=== PATIENT | female | born 1965 | race Caucasian/White ===

== ENCOUNTER 2021-01-14 19:21 | Emergency (ER) | payer OTHER ==
[~2021-01-14] VITALS: Ht 170.2 cm; Wt 72.6 kg
[2021-01-14] MEDS ORDERED: AMBIEN5 MG (19:46)
[2021-01-14] MEDS ORDERED: ENDOMETRIN100 MG (19:46)
[2021-01-14] MEDS ORDERED: FLAGYL500MG PO (23:19)
[2021-01-14] MEDS ORDERED: PROTONIX20 MG PO (23:19)
[2021-01-14] MEDS ORDERED: CIPRO500 MG PO (23:19)
[2021-01-14] MEDS ORDERED: DICY20TA PO (23:19)
== END 2021-01-14 23:41 | disposition home or self-care (01) ==
LOC: ER 19:21
DX: K57.32 Diverticulitis of large intestine without perforation or abscess without bleeding (principal); R10.32 Left lower quadrant pain

== ENCOUNTER 2023-08-28 14:10 | Inpatient (IN) | payer OTHER ==
[~2023-08-28] VITALS: Ht 170.2 cm; Wt 72.6 kg
[~2023-08-28 14:10] MED LIST: AMBIEN5 MG; CIPRO500 MG PO; DICY20TA PO; ENDOMETRIN100 MG; FLAGYL500MG PO; PROTONIX20 MG PO
[2023-08-28 17:21] LABS: HEMATOCRIT 41.4 % (36.0-45.00); HEMOGLOBIN 13.3 g/dL (12.0-15.00); MEAN CELL VOLUME 86.4 fL (80.00-100.00); MEAN CORPUSCULAR HEMOGLOBIN 27.7 pg (27.00-32.0); MEAN CORPUSCULAR HGB CONC 32.1 g/dl (32.0-36.0); PLATELET COUNT 319 K/uL (150-450); RED BLOOD COUNT 4.79 M/uL (4.00-6.00); RED CELL DISTRIBUTION WIDTH 13.4 % (11.5-14.5)
[2023-08-28 17:41] LABS: INR 1.02; PARTIAL THROMBOPLASTIN TIME 26.8 SECONDS (22.0-34.0); PROTHROMBIN TIME 10.7 SECONDS (9.0-11.5)
[2023-08-28 17:43] LABS: CALCIUM 9.3 mg/dL (8.5-10.1); CREATININE SERUM 0.68 mg/dL (0.55-1.02); GFR 89.5; POTASSIUM 3.68 mEq/L (3.5-5.1)
[2023-08-28 19:07] LABS: PH,URINE 5.5 (5.0-8.0); URINE APPEARANCE Clear; URINE BILIRRUBIN Negative (NEGATIVE); URINE BLOOD Small; URINE COLOR Yellow; URINE GLUCOSE Negative (NEGATIVE); URINE LEUKOCYTE Trace; URINE NITRATE Negative; URINE PROTEIN Negative (NEGATIVE); URINE UROBILINOGEN 0.2 E.U./dl
[2023-08-28 19:11] LABS: URINE BACTERIA 28.9 uL (0.0-1933); URINE WBC 8.8 uL (0.0-23.2)
[2023-08-29 01:56] LABS: C-REACTIVE PROTEIN 1.92 MG/DL (0.00-0.29)
[2023-08-30 17:25] LABS: FECAL LEUKOCYTES NEGATIVE (NEGATIVE); ob POSITIVE (NEGATIVE)
[2023-08-31 06:23] LABS: HEMATOCRIT 35.9 % (36.0-45.00); MEAN CELL VOLUME 85.4 fL (80.00-100.00); MEAN CORPUSCULAR HEMOGLOBIN 28.6 pg (27.00-32.0); MEAN CORPUSCULAR HGB CONC 33.5 g/dl (32.0-36.0); PLATELET COUNT 277 K/uL (150-450); RED CELL DISTRIBUTION WIDTH 13.3 % (11.5-14.5)
[2023-08-31 07:06] LABS: CALCIUM 8.5 mg/dL (8.5-10.1); CREATININE SERUM 0.64 mg/dL (0.55-1.02); GFR 95.99; POTASSIUM 3.46 mEq/L (3.5-5.1)
== END 2023-08-31 14:06 | disposition home or self-care (01) | DRG 392 ==
LOC: ER 14:10 → SURH 21:59
PROVIDERS: General Practice; Internal Medicine; ADMIT Internal Medicine; ATTEND Internal Medicine
PROC: BW21YZZ Computerized Tomography (CT Scan) of Abdomen and Pelvis using Other Contrast (ICD-10-PCS; principal; 2023-08-28)
DX: A09 Infectious gastroenteritis and colitis, unspecified (principal); K57.32 Diverticulitis of large intestine without perforation or abscess without bleeding; Z20.822 Contact with and (suspected) exposure to COVID-19